=== PATIENT | male | born 1970 | race Caucasian/White ===

== ENCOUNTER 2019-02-06 17:26 | Emergency (ER) | payer OTHER ==
--- NOTE | 2019-02-06 19:47 | ED Physician Documentation ---
PD HPI HEENT - Stated complaint Stated Complaint: EAR PAIN - Chief complaint Chief Complaint: Heent - History obtained from History obtained from: Patient - History of Present Illness Timing - onset: Today Timing - duration: Hours Timing - details: Gradual onset Pain level now: 8 Location: Right ear Associated symptoms: No: Fever, Congestion, Rhinorrhea Recently seen: Not recently seen - Additional information Additional information: There is a 48-year-old man who presents with complaints that he woke up this morning and could not hear out of the right ear and was having pain in it. He is been having pain intermittently for the past several days and is been using Afrin to try and get his ears to pop he can pop them in the right one will crackle a little bit. But the pains but gotten progressively more severe to the day is now an 8 out of 10 despite Tylenol and ibuprofen. He has had a bit of scratchy throat but no real nasal congestion. No left ear pain. He had some chills 3 days ago. No documented fever. 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 Review of Systems Constitutional: reports: Chills. denies: Fever Ears: reports: Loss of hearing, Ear pain. denies: Drainage/discharge Nose: denies: Rhinorrhea / runny nose, Congestion Throat: reports: Sore throat PD PAST MEDICAL HISTORY - Past Medical History GI: GERD Musculoskeletal: Other Other Past Medical History: arthritis - Past Surgical History Past Surgical History: Yes - Present Medications Home Medications: Ambulatory Orders Medication Instructions Recorded Confirmed Amoxicillin 875 mg PO BID #20 tablet 02/06/19 - Allergies Allergies/Adverse Reactions: Allergies Allergy/AdvReac Type Severity Reaction Status Date / Time No Known Drug Allergies Allergy Verified 02/06/19 17:34 - Social History Does the pt smoke?: No Smoking Status: Never smoker Does the pt drink ETOH?: Yes Does the pt have substance abuse?: No - Immunizations Immunizations are current?: Yes PD ED PE NORMAL - Vitals Vital signs reviewed: Yes - General General: Alert and oriented X 3, No acute distress, Well developed/nourished - HEENT HEENT: Atraumatic, PERRL, EOMI, Moist mucous membranes, Pharynx benign, Other (The right TM is erythematous and dull and there is serous fluid behind it. The left TM is clear.) - Neck Neck: No adenopathy, Thyroid normal Results - Vitals Vitals: Vital Signs - 24 hr 02/06/19 02/06/19 17:32 20:02 Temperature 37.1 C Heart Rate 80 74 Respiratory 17 18 Rate Blood Pressure 183/118 H 140/94 H O2 Saturation 96 100 Oxygen O2 Source Room air PD MEDICAL DECISION MAKING - ED course Complexity details: d/w patient ED course: Patient's blood pressure was quite elevated but he says he has that problem with blood pressures taken by machine and it was repeated manually and it was significantly improved. Patient is placed on amoxicillin instructed to keep popping his ears and using ibuprofen as an anti-inflammatory. Follow-up if he is not improving. Departure - Departure Disposition: 01 Home, Self Care Clinical Impression: Otitis media Qualifiers: Otitis media type: unspecified Laterality: right Qualified Code(s): H66.91 - Otitis media, unspecified, right ear Condition: Good Instructions: ED Otitis Media Acute Adult Follow-Up: doctor,your [Other] Prescriptions: Amoxicillin 875 mg PO BID #20 tablet Comments: Take the amoxicillin as prescribed. Continue to use ibuprofen as an anti- inflammatory. Continue gently popping the ears to help drain the fluid. Follow-up with your primary care provider if your symptoms are not improving in 48 hours or return if worsening. Discharge Date/Time: 02/06/19 20:19
[2019-02-06 20:02] VITALS: BP 140/94
== END 2019-02-06 20:19 | disposition home or self-care (01) ==
LOC: ED 17:26
DX: H66.91 Otitis media, unspecified, right ear (principal)
CPT/HCPCS: 99282; 99283

== ENCOUNTER 2021-07-30 14:58 | Emergency (ER) | payer OTHER ==
[2021-07-30 15:28] LABS: BASOPHILS % (AUTO) 0.5 %; EOSINOPHILS # (AUTO) 0.1 10^3/uL (0.0-0.7); EOSINOPHILS % (AUTO) 1.6 %; HCT - HEMATOCRIT 44.2 % (42.0-52.0); HGB - HEMOGLOBIN 15.8 g/dL (14.0-18.0); LYMPHOCYTES # (AUTO) 1.5 10^3/uL (1.5-3.5); LYMPHOCYTES % (AUTO) 19.3 %; MEAN CORPUSCULAR HEMOGLOBIN 33.1 pg (27.0-31.0); MEAN CORPUSCULAR HGB CONC 35.7 g/dL (32.0-36.0); MEAN CORPUSCULAR VOLUME 92.5 fL (80.0-94.0); MEAN PLATELET VOLUME 10.8 fL (7.4-11.4); MONOCYTES # (AUTO) 0.9 10^3/uL (0.0-1.0); MONOCYTES % (AUTO) 11.5 %; NEUTROPHILS # (AUTO) 5.2 10^3/uL (1.5-6.6); PLT - PLATELET COUNT 235 10^3/uL (130-450); RED BLOOD COUNT 4.78 10^6/uL (4.70-6.10); RED CELL DISTRIBUTION WIDTH 11.5 % (12.0-15.0); WHITE BLOOD COUNT 7.7 x10^3/uL (4.8-10.8)
[2021-07-30 15:32] LABS: BILIRUBIN,URINE NEGATIVE (NEGATIVE); GLUCOSE, URINE (UA) NEGATIVE (NEGATIVE); KETONES,URINE (UA) NEGATIVE (NEGATIVE); LEUKOCYTE ESTERASE, URINE NEGATIVE (NEGATIVE); NITRITE,URINE NEGATIVE (NEGATIVE); OCCULT BLOOD,URINE NEGATIVE (NEGATIVE); PROTEIN,URINE NEGATIVE (NEGATIVE); UROBILINOGEN,URINE 0.2 (NORMAL) E.U./dL (NORMAL)
--- NOTE | 2021-07-30 15:33 | ED Physician Documentation ---
History of Present Illness - Stated complaint Stated Complaint: ABD PX - Chief complaint Chief Complaint: Abd Pain - Additonal information Additional information: 50-year-old male presents emergency department for evaluation of upper umbilical abdominal pain. Symptoms began about a month ago. Initially they were intermittent but over the weekend became per consistent. He feels a hard lump just above his bellybutton. He has had no fevers nausea vomiting melena or hematochezia. No history of previous abdominal surgery. He does do heavy work and lifting. Review of Systems Constitutional: reports: Reviewed and negative Nose: reports: Reviewed and negative Throat: reports: Reviewed and negative Cardiac: reports: Reviewed and negative Respiratory: reports: Reviewed and negative GI: reports: Abdominal Pain. denies: Nausea, Vomiting, Constipation, Diarrhea, Hematemesis, Bloody / black stool : reports: Reviewed and negative Skin: reports: Reviewed and negative Musculoskeletal: reports: Reviewed and negative PD PAST MEDICAL HISTORY - Past Medical History GI: GERD Musculoskeletal: Other - Past Surgical History Past Surgical History: Yes - Present Medications Home Medications: Ambulatory Orders Medication Instructions Recorded Confirmed Atorvastatin [Lipitor] 20 mg ORAL DAILY 07/30/21 07/30/21 Omeprazole Magnesium 20 mg PO DAILY 07/30/21 07/30/21 - Allergies Allergies/Adverse Reactions: Allergies Allergy/AdvReac Type Severity Reaction Status Date / Time No Known Drug Allergies Allergy Verified 07/30/21 15:06 - Social History Does the pt smoke?: No Smoking Status: Never smoker Does the pt drink ETOH?: Yes Does the pt have substance abuse?: No - Immunizations Immunizations are current?: Yes PD ED PE EXPANDED - General General: Alert, No acute distress, Well developed/nourished - Cardiac Cardiac: Regular Rate, Radial strong equal, Cap refill < 2 sec - Respiratory Respiratory: Clear to ausultation tamie. No: Distress, Labored - Abdomen Abdomen: Tender to palpation, Other (Small 2 cm umbilical hernia just above the umbilicus. Easily reduced with gentle pressure.) - Derm Derm: Normal color, Warm and dry. No: Rash - Extremities Extremities: Normal. No: Deformity, Tenderness - Neuro Neuro: Alert and Oriented X 3, CNII-XII intact - GCS Eye Opening: Spontaneous Motor: Obeys Commands Verbal: Oriented Total: 15 Results - Vitals Vitals: Vital Signs - 24 hr 07/30/21 07/30/21 15:07 15:29 Temperature 36.8 C Heart Rate 70 Respiratory 16 20 Rate Blood Pressure 167/101 H O2 Saturation 94 Oxygen O2 Source Room air - Labs Labs: Laboratory Tests 07/30/21 07/30/21 07/30/21 15:22 15:22 15:22 WBC 7.7 RBC 4.78 Hgb 15.8 Hct 44.2 MCV 92.5 MCH 33.1 H MCHC 35.7 RDW 11.5 L Plt Count 235 MPV 10.8 Neut # (Auto) 5.2 Lymph # (Auto) 1.5 [place] # (Auto) 0.9 Eos # (Auto) 0.1 Baso # (Auto) 0.0 Absolute Nucleated RBC 0.00 Nucleated RBC % 0.0 Sodium 134 L Potassium 4.2 Chloride 101 Carbon Dioxide 24 Anion Gap 9.0 BUN 21 H Creatinine 0.8 Estimated GFR (MDRD) 103 Glucose 96 Calcium 9.3 Total Bilirubin 1.0 AST 26 ALT 42 Alkaline Phosphatase 58 Total Protein 8.2 Albumin 4.8 Globulin 3.4 Albumin/Globulin Ratio 1.4 Lipase 34 Urine Color YELLOW Urine Clarity CLEAR Urine pH 7.0 Ur Specific [place] 1.020 Urine Protein NEGATIVE Urine Glucose (UA) NEGATIVE Urine Ketones NEGATIVE Urine Occult Blood NEGATIVE Urine Nitrite NEGATIVE Urine Bilirubin NEGATIVE Urine Urobilinogen 0.2 (NORMAL) Ur Leukocyte Esterase NEGATIVE Ur Microscopic Review NOT INDICATED Urine Culture Comments NOT INDICATED PD MEDICAL DECISION MAKING - ED course Complexity details: reviewed results, re-evaluated patient, considered differential, d/w patient ED course: 50-year-old male presents emergency department for evaluation of intermittent pain above his umbilicus that began about 1 month ago but is gotten progressively worse over the last few days. He describes a hard bump or not. On exam he did have an a hernia that was easily reduced at the bedside. His screening labs are unremarkable for any worrisome findings. We did defer imaging as clinical exam is consistent with a reducible umbilical hernia without findings to suggest obstruction or gangrene. Patient will see his primary care provider next week and is advised referral to a surgeon. Emergent worrisome return precautions otherwise discussed. Departure - Departure Disposition: 01 Home, Self Care Clinical Impression: Umbilical hernia Qualifiers: Obstruction and gangrene presence: without obstruction or gangrene Qualified Code(s): K42.9 - Umbilical hernia without obstruction or gangrene Condition: Stable Record reviewed to determine appropriate education?: Yes Instructions: Hernias Nb Comments: Latrice You are seen today in the emergency department for some pain right above your bellybutton. As we discussed at the bedside we found that you had an umbilical hernia. The procedure that we did at the bedside is called reduction. It is where we placed gentle pressure on the hernia and allow it to go back into the abdominal cavity. This hernia most likely contained fat and not intestines. When you see your primary doctor next week please request a referral to general surgeon. Given that years is symptomatic and quite painful they may elect to do hernia repair. If any point you find that you have swelling fevers redness of the hernia intractable pain or vomiting then please return immediately to the emergency department for second evaluation.
[2021-07-30 15:37] LABS: CLARITY,URINE CLEAR (CLEAR)
[2021-07-30 15:40] LABS: ALBUMIN 4.8 g/dL (3.2-5.5); ALBUMIN/GLOBULIN RATIO 1.4 (1.0-2.2); CALCIUM 9.3 mg/dL (8.5-10.3); CREATININE 0.8 mg/dL (0.6-1.2); POTASSIUM 4.2 mmol/L (3.5-5.0); TOTAL PROTEIN 8.2 g/dL (6.7-8.2)
[2021-07-30 16:22] VITALS: BP 165/98
== END 2021-07-30 16:22 | disposition home or self-care (01) ==
LOC: ED 14:58
DX: K42.9 Umbilical hernia without obstruction or gangrene (principal)
CPT/HCPCS: 36415; 80053; 81001; 81003; 83690; 85025; 87086; 99282; 99283

== ENCOUNTER 2021-09-24 06:14 | Day surgery (SDC) | payer OTHER ==
[~2021-09-24 06:14] MED LIST: CEFAZOLIN SODIUM IN 0.9 % NACL 2 GM/50 ML BAG IV ONE
[2021-09-24] MEDS ORDERED: LACTATED RINGERS 1,000 ML IV ONE (06:55)
[2021-09-24] MEDS ORDERED: BUPIVACAINE 0.25% PF 10 ML VIAL ONE ×2 (07:02→07:09)
[2021-09-24] MEDS ORDERED: ROCURONIUM 50 MG/5 ML VIAL ONE ×2 (07:09→08:25)
[2021-09-24] MEDS ORDERED: LIDOCAINE-MPF 2% 5 ML VIAL ONE (07:09)
[2021-09-24] MEDS ORDERED: PROPOFOL 200 MG/20 ML VIAL IVP ONE (07:09)
[2021-09-24] MEDS ORDERED: MIDAZOLAM 2 MG/2 ML VIAL ONE (07:10)
[2021-09-24] MEDS ORDERED: fentaNYL 100 MCG/2 ML VIAL ONE (07:10)
--- NOTE | 2021-09-24 07:10 | ANESTHESIA ---
Pre-Anesthesia VS, & Labs - Diagnosis umbilical hernia - Procedure open umbilical hernia repair with mesh Vital Signs: Temp Pulse Resp BP Pulse Ox 36.1 C L 71 20 170/100 H 96 09/24/21 06:33 09/24/21 06:33 09/24/21 06:33 09/24/21 06:33 09/24/21 06:33 Height: 6 ft 2 in Weight (kg): 137.9 kg Body Mass Index: 39.0 BMI Classification: Obese - NPO >8 hours Home Medications and Allergies Home Medications: Ambulatory Orders Fluticasone [Flonase] 1 sprays CHERISE BID PRN 09/16/21 Ibuprofen [Motrin] 600 mg PO Q6H PRN 09/16/21 Sildenafil Citrate [Viagra] 50 mg PO PRN PRN 09/16/21 Atorvastatin [Lipitor] 20 mg ORAL DAILY 07/30/21 Omeprazole Magnesium 20 mg PO DAILY 07/30/21 Fluticasone [Flonase] 1 sprays CHERISE BID PRN 09/16/21 Ibuprofen [Motrin] 600 mg PO Q6H PRN 09/16/21 Sildenafil Citrate [Viagra] 50 mg PO PRN PRN 09/16/21 Allergies/Adverse Reactions: Allergies Allergy/AdvReac Type Severity Reaction Status Date / Time No Known Drug Allergies Allergy Verified 07/30/21 15:06 Anes History & Medical History - Anesthetic History Family history of Anesthesia Complications: Denies Family history of Malignant Hyperthermia: Denies - Medical History Cardiovascular: reports: High cholesterol Pulmonary: reports: Sleep apnea, CPAP use Gastrointestinal: reports: GERD Urinary: reports: None Neuro: reports: None Musculoskeletal: reports: None Endocrine/Autoimmune: reports: None Blood Disorders: reports: None Skin: reports: None Smoking Status: Never smoker Psychosocial: reports: Alcohol (drinks beer daily) History of Cancer?: No Exam General: Alert, Oriented x3, Cooperative, No acute distress Dental: WNL Mouth Openin Fingerbreadth Neck Mobility: Normal Mallampati classification: II Thyromental Distance: greater than 6 cm Mental/Cognitive Status: Alert/Oriented X3, Normal for patient Plan Anesthesia Type: General Consent for Procedure(s) Verified and Reviewed: Yes Code Status: Attempt Resuscitation ASA classification: 2-Mild systemic disease Is this case an emergency?: No
[2021-09-24] MEDS ORDERED: DEXAMETHASONE 10 MG/ML VIAL ONE (08:11)
[2021-09-24] MEDS ORDERED: BUPIVACAINE 0.25% PF 10 ML VIAL SUBQ ONE (08:14)
[2021-09-24] MEDS ORDERED: ONDANSETRON 4 MG/2 ML VIAL ONE (08:53)
[2021-09-24] MEDS ORDERED: ATROPINE 0.4 MG/ML VIAL IVP ONE (08:55)
[2021-09-24] MEDS ORDERED: SUGAMMADEX 200 MG/2 ML VIAL IVP ONE (08:56)
[2021-09-24] MEDS ORDERED: HYDROmorphone 1 MG/ML CARPUJECT ONE (08:57)
[2021-09-24] MEDS ORDERED: LACTATED RINGERS 700 ML IV ONE (09:01)
[2021-09-24] MEDS ORDERED: ONDANSETRON 4 MG/2 ML VIAL IVP PRN ×2 (09:02→09:23)
[2021-09-24] MEDS ORDERED: HYDROmorphone 0.5 MG/0.5 ML SYRINGE IVP PRN ×2 (09:02→09:23)
[2021-09-24] MEDS ORDERED: oxyCODONE 5 MG TABLET PO PRN (09:02)
[2021-09-24] MEDS ORDERED: ATROPINE ABBOJECT 1 MG/10 ML SYRINGE IVP PRN (09:23)
[2021-09-24] MEDS ORDERED: NALOXONE 0.4 MG/ML VIAL IVP PRN (09:23)
[2021-09-24] MEDS ORDERED: fentaNYL 100 MCG/2 ML VIAL IVP PRN (09:23)
[2021-09-24] MEDS ORDERED: ePHEDrine 50 MG/ML VIAL IVP PRN (09:23)
[2021-09-24] MEDS ORDERED: METOCLOPRAMIDE 10 MG/2 ML VIAL IVP PRN (09:23)
[2021-09-24] MEDS ORDERED: MORPHINE 2 MG/ML CARPUJECT IVP PRN (09:23)
[2021-09-24 09:41] VITALS: BP 141/93
--- NOTE | 2021-09-24 09:51 | OPERATIVE REPORT ---
Operative Report - General Procedure Date: 09/24/21 Planned Procedure: open umbilical hernia repair with mesh Pre-Op Diagnosis: umbilical hernia Procedure Performed: open umbilical hernia repair with mesh Post Op Diagnosis: 2.5 cm umbilical hernia - Procedure Note Primary Surgeon: sadie levin Anesthesia Technique: General ET tube, Local Pathology: none Estimated Blood Loss (mL): 2 Drain/Tube Type: Other (none) Indications: painful hernia bulge Findings: good surrounding tissue, ie no significant diastasis Complications: none - Other Other Information/Narrative: . the patient was properly identified brought to the operating room and placed in supine position. Sequential compression devices were placed. General anesthesia was induced. The patient was prepped and draped in a sterile fashion and given preoperative antibiotics. Local anesthetic was given throughout the procedure. A supraumbilical incision was made. The incision was extended left lateral of the umbilicus. Dissection proceeded sharply. Subcutaneous tissue was mobilized away from the fascial defect by 2 to 3 cm in all directions. Umbilical skin was sharply excised away from the hernia sac or peritoneum. The peritoneum was then carefully released from the fascial defect edge with cutting current cautery. A preperitoneal space was developed for mesh placement. Polypropylene mesh was cut to size approximately 2 x 3 inches and placed preperitoneal. The mesh was secured with 9 interrupted 0 Ethibond sutures. The mesh lay in good position without tension. Fascia was closed over the mesh with additional ethibonds. Subcutaneous tissue was reapproximated with interrupted 2-0 Vicryl suture. Umbilical skin was tacked back down to fascia with interrupted 2-0 Vicryl suture. Buried interrupted subdermal 3-0 Vicryl sutures were then placed. Skin was closed with a running 4-0 Monocryl subcuticular suture. Dressing was applied. Patient tolerated the procedure the procedure well was awakened and brought to recovery in good condition.
[2021-09-24] MEDS ORDERED: LACTATED RINGERS 1,000 ML IV SCH (10:00)
--- NOTE | 2021-09-24 13:38 | ANESTHESIA POST OP EVALUATION ---
Anesthesia Post Eval - Post Anesthesia Eval Vitals: Last Vital Signs Temp 36.1 C L 09/24/21 09:28 Pulse 72 09/24/21 09:40 Resp 16 09/24/21 09:40 BP 141/93 H 09/24/21 09:40 Pulse Ox 94 09/24/21 09:40 CV Function Including HR & BP: Stable Pain Control: Satisfactory Nausea & Vomiting: Negative Mental Status: Baseline Respiratory Status: Airway Patent Hydration Status: Satisfactory Anesthesia Complications: None
== END 2021-09-24 06:15 | disposition home or self-care (01) ==
LOC: SDS 06:14
PROVIDERS: ATTEND Surgery
DX: K42.9 Umbilical hernia without obstruction or gangrene (principal); E66.9 Obesity, unspecified; Z68.39 Body mass index [BMI] 39.0-39.9, adult; G47.30 Sleep apnea, unspecified
CPT/HCPCS: 49585; C1781; J0690; J1170; J7120